=== PATIENT | female | born 1995 | race African-American/Black ===

== ENCOUNTER 2016-05-13 15:47 | Emergency (ER) | payer OTHER ==
[~2016-05-13] VITALS: Ht 180.3 cm; Wt 52.6 kg
[2016-05-13] MEDS ORDERED: cefTRIAXone SOD 1,000 MG VL IM ONE (16:45)
[2016-05-13] MEDS ORDERED: KETOROLAC TROMETH 60MG/2ML VIAL IM ONE (16:45)
[2016-05-13 16:53] VITALS: BP 127/70
== END 2016-05-13 17:09 | disposition home or self-care (01) ==
LOC: ER 15:56
DX: L03.211 Cellulitis of face (principal); K02.9 Dental caries, unspecified
CPT/HCPCS: 96372; 99284; J0696; J1885